=== PATIENT | male | born 1980 | race Caucasian/White ===

== ENCOUNTER 2018-03-02 14:27 | Inpatient (IN) | payer OTHER ==
[2018-03-02 15:59] LABS: Amphetamine Screen,Urine Not Detected (NotDetected); Barbiturate Screen,Urine Not Detected (NotDetected); Benzodiazepines Screen,Urine Not Detected (NotDetected); Cocaine Screen,Urine Not Detected (NotDetected); Methadone Screen, Urine Not Detected (NotDetected); Opiate Screen,Urine Not Detected (NotDetected); Oxycodone Screen, Urine Not Detected (NotDetected); Phencyclidine Screen,Urine Not Detected (NotDetected); Tricyclic Antidepressant,Urine Not Detected (NotDetected); Urn Cannabinoid Scrn Not Detected (NotDetected)
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
[2018-03-02] MEDS ORDERED: MAGNESIUM HYDROXIDE 2,400 MG/10 ML CUP PO PRN (18:17)
[2018-03-02] MEDS ORDERED: ZIPRASIDONE 20 MG VIAL IM PRN (18:17)
[2018-03-02] MEDS ORDERED: MAG HYDROX/AL HYDROX/SIMETH 30 ML CUP PO PRN (18:17)
[2018-03-02] MEDS ORDERED: ACETAMINOPHEN TAB 325 MG TAB PO PRN (18:17)
[2018-03-02] MEDS ORDERED: LORazepam 1 MG TAB PO PRN (18:17)
[2018-03-02] MEDS ORDERED: NAPROXEN 250 MG TAB PO PRN (18:27)
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
[2018-03-03] MEDS ORDERED: NICOTINE 21MG/24HR PATCH TRANSDERM SCH (09:00)
[2018-03-03 12:03] LABS: Basophils % (A) 1 %; Eosinophils # (A) 0.5 k/uL (0-0.7); Eosinophils % (A) 7 %; HGB 15.1 gm/dL (13.0-17.5); Lymphocytes # (A) 2.7 k/uL (1.0-4.8); Lymphocytes % (A) 34 %; MCH 32.9 pg (25.0-35.0); MCHC 32.9 g/dL (31.0-37.0); MCV 100.3 fL (80.0-100.0); Mean Platelet Volume 5.9; Monocytes # (A) 0.5 k/uL (0-1.0); Monocytes % (A) 6 %; Neutrophils # (A) 4.2 k/uL (1.3-7.7); Neutrophils % (A) 51 %; Platelet Count 479 k/uL (150-450); RBC 4.59 m/uL (4.30-5.90); RDW 12.2 % (11.5-15.5); WBC 8.1 k/uL (3.8-10.6)
[2018-03-03 12:20] LABS: ALT 29 U/L (21-72); AST 24 U/L (17-59); Albumin 3.9 g/dL (3.5-5.0); Alkaline Phosphatase 67 U/L (38-126); Anion Gap 4 mmol/L; Blood Urea Nitrogen 18 mg/dL (9-20); Calcium 9.5 mg/dL (8.4-10.2); Carbon Dioxide 28 mmol/L (22-30); Chloride 107 mmol/L (98-107); Cholesterol 155 mg/dL (<200); Glucose 100 mg/dL (74-99); HDL Cholesterol 59 mg/dL (40-60); LDL Cholesterol,Calculated 49 mg/dL (0-99); Potassium 5.4 mmol/L (3.5-5.1); Sodium 139 mmol/L (137-145); Total Bilirubin 0.4 mg/dL (0.2-1.3); Total Protein 6.4 g/dL (6.3-8.2); Triglycerides 235 mg/dL (<150)
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
[2018-03-03] MEDS ORDERED: SODIUM POLYSTYRENE SULFONATE 15 GM/60 ML BOTTLE PO STA (16:50)
[2018-03-03 19:45] LABS: Hemoglobin A1C 5.4 % (4.0-6.0)
[2018-03-03] MEDS ORDERED: DIVALPROEX ER 250 MG TAB.ER.24H PO SCH (21:00)
[2018-03-03] MEDS ORDERED: PALIPERIDONE 3 MG TAB.ER.24 PO SCH (21:00)
[2018-03-03] MEDS: OLANZapine 2.5 MG TAB PO SCH (21:05)
[2018-03-04] MEDS: OLANZapine 2.5 MG TAB PO SCH (07:33)
[2018-03-04 09:39] LABS: ALT 31 U/L (21-72); AST 21 U/L (17-59); Albumin 3.8 g/dL (3.5-5.0); Alkaline Phosphatase 59 U/L (38-126); Anion Gap 4 mmol/L; Blood Urea Nitrogen 17 mg/dL (9-20); Calcium 9.4 mg/dL (8.4-10.2); Carbon Dioxide 32 mmol/L (22-30); Chloride 105 mmol/L (98-107); Glucose 83 mg/dL (74-99); Potassium 4.8 mmol/L (3.5-5.1); Sodium 141 mmol/L (137-145); Total Bilirubin 0.4 mg/dL (0.2-1.3); Total Protein 6.3 g/dL (6.3-8.2)
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
[2018-03-04] MEDS ORDERED: TOPIRAMATE 25 MG TAB PO SCH (21:00)
[2018-03-04] MEDS ORDERED: HALOPERIDOL 1 MG TAB PO SCH (21:00)
[2018-03-04] MEDS ORDERED: HALOPERIDOL 0.5 MG TAB PO SCH (22:17)
[2018-03-05 06:48] VITALS: RESP 16
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
[2018-03-05] MEDS ORDERED: TOPIRAMATE 25 MG TAB PO SCH (21:00)
[2018-03-05] MEDS: HALOPERIDOL 1 MG TAB PO SCH (21:01)
[2018-03-06 07:00] VITALS: TEMP 97.3
[2018-03-06] MEDS: HALOPERIDOL 1 MG TAB PO SCH ×2 (08:08→20:25)
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
[2018-03-06 10:26] LABS: Appearance,Urine Clear (Clear); Bilirubin,Urine Negative (Negative); Blood,Urine Negative (Negative); Color,Urine Light Yellow; Glucose,Urine (UA) Negative (Negative); Ketones,Urine Negative (Negative); Leukocyte Esterase,Urine Negative (Negative); Nitrite,Urine Negative (Negative); PH, Urine 7.5 (5.0-8.0); Protein,Urine Negative (Negative); Specific Gravity,Urine 1.008 (1.001-1.035); Urobilinogen,Urine <2.0 mg/dL (<2.0)
[2018-03-06] MEDS ORDERED: TOPIRAMATE 100 MG TAB PO SCH (21:00)
[2018-03-07] MEDS ORDERED: HALOPERIDOL 0.5 MG TAB PO SCH ×2 (06:19→21:00)
[2018-03-07 06:54] VITALS: BP 111/68; PULSE 64
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
[2018-03-07] MEDS ORDERED: HALOPERIDOL 5 MG TAB PO SCH (21:00)
== END 2018-03-07 13:45 | disposition home or self-care (01) | DRG 885 ==
LOC: EC 14:27 → 3MHU 17:24
PROVIDERS: ADMIT Psychiatry & Neurology Psychiatry; ATTEND Psychiatry & Neurology Psychiatry
DX: F31.9 Bipolar disorder, unspecified (principal); F17.200 Nicotine dependence, unspecified, uncomplicated; F90.9 Attention-deficit hyperactivity disorder, unspecified type; Z87.442 Personal history of urinary calculi; Z91.14 Patient's other noncompliance with medication regimen; Z91.19 Patient's noncompliance with other medical treatment and regimen; Z88.6 Allergy status to analgesic agent; Z88.2 Allergy status to sulfonamides
CPT/HCPCS: 80053; 80061; 80306; 81003; 83036; 84443; 84481; 85025; 99285

== ENCOUNTER 2018-12-27 19:43 | Emergency (ER) | payer OTHER ==
[2018-12-27 20:57] VITALS: BP 122/76; PULSE 69; RESP 18; TEMP 98
[2018-12-27] MEDS ORDERED: ACETAMINOPHEN TAB 325 MG TAB PO STA (21:40)
--- NOTE | 2018-12-27 22:07 | ED ---
General Adult HPI - General Chief complaint: Extremity Injury, Upper Stated complaint: L & R Hand injury Time Seen by Provider: 12/27/18 21:16 Source: patient, RN notes reviewed, old records reviewed Mode of arrival: ambulatory Limitations: no limitations - History of Present Illness Initial comments: 38-year-old male patient in the chief complaint bilateral hand and wrist pain. 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 Patient was is causing a lot of pain. Describes as profuse injury. Patient worsens has been ongoing for a long period of time but has gotten worse than last 2 weeks. Patient reports that is the pain when he wakes up. Patient denies any other complaints at this time. Systemic: Pt denies fatigue, fever/chills, rash. Pt denies weakness, night sweats, weight loss. Neuro: Pt denies headache, visual disturbances, syncope or pre-syncope. HEENT: Pt denies ocular discharge or irritation, otalgia, rhinorrhea, pharyngitis or notable lymphadenopathy. Cardiopulmonary: Pt denies chest pain, SOB, heart palpitations, dyspnea on exertion. Abdominal/GI: Pt denies abdominal pain, n/v/d. : Pt denies dysuria, burning w/ urination, frequency/urgency. Denies new onset urinary or bowel incontinence. MSK: Pt denies loss of strength or function in extremities. Neuro: Pt denies new onset weakness, paresthesias. - Related Data Previous Rx's Medication Instructions Recorded Haloperidol [Haldol] 5 mg PO 2100 30 Days #30 tab 03/07/18 Topiramate [Topamax] 100 mg PO 2100 30 Days #30 tab 03/07/18 Allergies Allergy/AdvReac Type Severity Reaction Status Date / Time ibuprofen Allergy Unknown Verified 12/27/18 20:57 Sulfa (Sulfonamide Allergy Unknown Verified 12/27/18 20:57 Antibiotics) Review of Systems ROS Statement: Those systems with pertinent positive or pertinent negative responses have been documented in the HPI. ROS Other: All systems not noted in ROS Statement are negative. Past Medical History Additional Past Medical History / Comment(s): kidney stones History of Any Multi-Drug Resistant Organisms: None Reported Past Surgical History: Hernia Repair Additional Past Surgical History / Comment(s): kidney stones, ear Past Psychological History: Bipolar, Depression Smoking Status: Current every day smoker Past Alcohol Use History: Occasional Past Drug Use History: Marijuana General Exam - General Exam Comments Initial Comments: Constitutional: NAD, AOX3, Pt has pleasant affect. HEENT: NC/AT, trachea midline, neck supple, no lymphadenopathy. Posterior pharynx non erythematous, without exudates. External ears appear normal, without discharge. Mucous membranes moist. Eyes PERRLA, EOM intact. There is no scleral icterus. No pallor noted. Cardiopulmonary: RRR, no murmurs, rubs or gallops, no JVD noted. Lungs CTAB in anterior and posterior hernandez. No peripheral edema. Abdominal exam: Abdomen soft and non-distended. Abdomen non-tender to palpation in all 4 quadrants. Bowel sounds active in LLQ. No hepatosplenomegaly. No ecchymosis Neuro: CN II-XII grossly intact. No nuchal rigidity. No raccon eyes, no solorzano sign, no hemotympanum. No cervical spinal tenderness. MSK: Hand is nontender, nonerythematous, full active range of motion, neurovascularly intact bilaterally. No posterior calf tenderness bilaterally, homans sign negative bilaterally. Posterior tibialis and radial pulse +2 bilaterally. Sensation intact in upper and lower extremities. Full active ROM in upper and lower extremities, 5/5 stregnth. Limitations: no limitations Course Vital Signs 12/27/18 20:55 Temperature 98.0 F Pulse Rate 69 Respiratory 18 Rate Blood Pressure 122/76 O2 Sat by Pulse 99 Oximetry Medical Decision Making - Medical Decision Making 38-year-old male patient presents due to complaint of bilateral hand and wrist pain. Patient will signs stable, afebrile. Physical exam did not display acute pathology. History is clinical suspicion for carpal tunnel. Offered plain films which are decision-making declined. Patient will discharge with outpatient orthopedic follow-up. Will be advised to use neutral splints as well as anti-inflammatories. Case discussed with Dr. Bean. Disposition Clinical Impression: Carpal tunnel syndrome Disposition: HOME SELF-CARE Condition: Stable Additional Instructions: Follow-up with primary care provider and orthopedic consult tomorrow. He is, as needed for pain. Wear neutral splint at night. Try to decrease repetitive twisting motions. Patient to adhere to previously discussed treatment plan and will take medication(s) as directed. Patient to follow up with PCP in 1-2 days. Patient to return to ED if symptoms do not improve. Carpal tunnel syndrome occurs when the tunnel becomes narrowed or when tissues surrounding the flexor tendons swell, putting pressure on the median nerve. These tissues are called the synovium. Normally, the synovium lubricates the tendons, making it easier to move your fingers. When the synovium swells, it takes up space in the carpal tunnel and, over time, crowds the nerve. This abnormal pressure on the nerve can result in pain, numbness, tingling, and weakness in the hand. Symptoms Symptoms of carpal tunnel syndrome may include: Numbness, tingling, burning, and painprimarily in the thumb and index, middle, and ring fingers Occasional shock-like sensations that radiate to the thumb and index, middle, and ring fingers Pain or tingling that may travel up the forearm toward the shoulder Weakness and clumsiness in the handthis may make it difficult to perform fine movements such as buttoning your clothes Dropping thingsdue to weakness, numbness, or a loss of proprioception (awareness of where your hand is in space) In most cases, the symptoms of carpal tunnel syndrome begin graduallywithout a specific injury. Many patients find that their symptoms come and go at first. However, as the condition worsens, symptoms may occur more frequently or may persist for longer periods of time. Night-time symptoms are very common. Because many people sleep with their wrists bent, symptoms may awaken you from sleep. During the day, symptoms often occur when holding something for a prolonged period of time with the wrist bent forward or backward, such as when using a phone, driving, or reading a book. Many patients find that moving or shaking their hands helps relieve their symptoms. Treatment Although it is a gradual process, for most people carpal tunnel syndrome will worsen over time without some form of treatment. For this reason, it is important to be evaluated and diagnosed by your doctor early on. In the early stages, it may be possible to slow or stop the progression of the disease. Nonsurgical Treatment If diagnosed and treated early, the symptoms of carpal tunnel syndrome can often be relieved without surgery. If your diagnosis is uncertain or if your symptoms are mild, your doctor will recommend nonsurgical treatment first. Nonsurgical treatments may include: Bracing or splinting. Wearing a brace or splint at night will keep you from bending your wrist while you sleep. Keeping your wrist in a straight or neutral position reduces pressure on the nerve in the carpal tunnel. It may also help to wear a splint during the day when doing activities that aggravate your symptoms. Nonsteroidal anti-inflammatory drugs (NSAIDs). Medications such as ibuprofen and naproxen can help relieve pain and inflammation. Activity changes. Symptoms often occur when your hand and wrist are in the same position for too longparticularly when your wrist is flexed or extended. If your job or recreational activities aggravate your symptoms, changing or modifying these activities can help slow or stop progression of the disease. In some cases, this may involve making changes to your work site or work station. Is patient prescribed a controlled substance at d/c from ED?: No Referrals: None,Stated [Primary Care Provider] - 1-2 days Andrea Castellano MD [STAFF PHYSICIAN] - 1-2 days
== END 2018-12-27 22:15 | disposition home or self-care (01) ==
LOC: EC 19:43
DX: G56.03 Carpal tunnel syndrome, bilateral upper limbs (principal); F17.200 Nicotine dependence, unspecified, uncomplicated; Z88.2 Allergy status to sulfonamides; Z88.6 Allergy status to analgesic agent; Z53.20 Procedure and treatment not carried out because of patient's decision for unspecified reasons
CPT/HCPCS: 99283

== ENCOUNTER 2019-02-10 00:54 | Emergency (ER) | payer OTHER ==
[2019-02-10 01:01] VITALS: BP 134/78; PULSE 69; RESP 18; TEMP 98.5
--- NOTE | 2019-02-10 01:29 | ED ---
Upper Extremity HPI - General Chief Complaint: Extremity Injury, Upper Stated Complaint: Bilateral Hand Swelling Time Seen by Provider: 02/10/19 01:13 Source: patient Mode of arrival: ambulatory Limitations: no limitations - History of Present Illness Initial Comments: 46-year-old male patient presents to the emergency department today for evaluation of bilateral wrist pain. Patient states his been having this pain for the last couple of years. States over the last several weeks and has been worsening. States that he has noticed some swelling. States he has not have insurance and has been unable to follow-up however he is getting insurance in March. States he is going to obtain braces tomorrow but was unable to complete his shift this evening and needed to provide documentation to his employer. He denies any known injury to the wrist. Denies fever or chills. States he does take Aleve but it doesn't seem to help very much. Denies any other concerns. Patient denies any recent rash, shortness breath, chest pain, abdominal pain, nausea, vomiting, diarrhea, constipation, back pain, numbness, tingling, dizziness, weakness, hematuria, dysuria, urinary urgency, urinary frequency, headache, visual changes, or any other complaints. - Related Data Previous Rx's Medication Instructions Recorded Haloperidol [Haldol] 5 mg PO 2100 30 Days #30 tab 03/07/18 Topiramate [Topamax] 100 mg PO 2100 30 Days #30 tab 03/07/18 Allergies Allergy/AdvReac Type Severity Reaction Status Date / Time ibuprofen Allergy Anaphylaxis Verified 02/10/19 01:49 Sulfa (Sulfonamide Allergy Unknown Verified 02/10/19 01:49 Antibiotics) Review of Systems ROS Statement: Those systems with pertinent positive or pertinent negative responses have been documented in the HPI. ROS Other: All systems not noted in ROS Statement are negative. Past Medical History Additional Past Medical History / Comment(s): kidney stones, hypoglycemia, History of Any Multi-Drug Resistant Organisms: None Reported Past Surgical History: Hernia Repair Additional Past Surgical History / Comment(s): kidney stones, ear, Past Psychological History: ADD/ADHD, Bipolar, Depression Smoking Status: Current every day smoker Past Alcohol Use History: Occasional Past Drug Use History: Marijuana General Exam Limitations: no limitations General appearance: alert, in no apparent distress, other (This is a well- developed, well-nourished adult male patient in no acute distress. Vital signs upon presentation are temperature 98.5F, pulse 69, respirations 18, blood pressure 134/78, pulse ox 96% on room air.) Eye exam: Present: normal appearance, PERRL, EOMI. Absent: scleral icterus, conjunctival injection, periorbital swelling ENT exam: Present: normal exam, normal oropharynx, mucous membranes moist Respiratory exam: Present: normal lung sounds bilaterally. Absent: respiratory distress, wheezes, rales, rhonchi, stridor Cardiovascular Exam: Present: regular rate, normal rhythm, normal heart sounds. Absent: systolic murmur, diastolic murmur, rubs, gallop, clicks Extremities exam: Present: full ROM, normal capillary refill, other (There is mild swelling to the bilateral wrist. Skin is pink, warm, dry. Cap refills less than 3 seconds. Radial pulses are 2+ and equal bilaterally. Strength and full range of motion is intact.). Absent: normal inspection, tenderness, pedal edema, joint swelling, calf tenderness Neurological exam: Present: alert, oriented X3, CN II-XII intact Psychiatric exam: Present: normal affect, normal mood Skin exam: Present: warm, dry, intact, normal color. Absent: rash Course Vital Signs 02/10/19 00:58 Temperature 98.5 F Pulse Rate 69 Respiratory 18 Rate Blood Pressure 134/78 O2 Sat by Pulse 96 Oximetry Medical Decision Making - Medical Decision Making 38-year-old male patient presented to the emergency department today for evaluation of bilateral wrist pain. This is chronic for the patient for going on for a couple of years. Symptoms are consistent with carpal tunnel syndrome. He will be discharged to follow-up with orthopedic nurse for further evaluation. He is going to obtain splints tomorrow. He is instructed to follow-up with his primary care physician for recheck in 1-2 days. Return parameters were discussed in detail. He verbalizes understanding and agrees with this plan. Disposition Clinical Impression: Carpal tunnel syndrome on both sides Disposition: HOME SELF-CARE Condition: Good Instructions (If sedation given, give patient instructions): Arthralgia (ED) Additional Instructions: Obtain splints for the bilateral wrists. Follow-up through primary care physician for recheck in 1-2 days. Follow-up with orthopedic nurse as soon as possible. Return to the emergency department immediately for any new, worsening, or concerning symptoms. Is patient prescribed a controlled substance at d/c from ED?: No Referrals: Nguyễn Conroy DO [Medical Doctor] - 1-2 days Time of Disposition: 01:29
[2019-02-10] MEDS: KETOROLAC 30 MG/ML 1 ML VIAL IM STA ×2 (01:46→01:49)
== END 2019-02-10 01:52 | disposition home or self-care (01) ==
LOC: EC 00:54
DX: G56.03 Carpal tunnel syndrome, bilateral upper limbs (principal); F17.200 Nicotine dependence, unspecified, uncomplicated; Z88.6 Allergy status to analgesic agent; Z88.2 Allergy status to sulfonamides
CPT/HCPCS: 99283